=== PATIENT | female | born 1990 | race African-American/Black ===

== ENCOUNTER 2017-10-22 15:08 | Emergency (ER) | payer MEDICAID ==
[2017-10-22 16:02] LABS: ADD MAN DIFF? NO
[2017-10-22 16:05] LABS: MODE ROOM AIR; MetHgb Venous 0.3 %; Sample Type Blood venous; Site VENOUS LINE; Venous COHb 1.5 %; Venous Fraction OxyHgb 72.8 %; Venous Oxygen Sat 74.1 mmHG (55.0-75.0); Venous Total Hemglobin 14.9 g/dl
[2017-10-22] MEDS: SOD CHLORIDE 0.9% 520 ML IV (16:09)
[2017-10-22 16:11] LABS: WHITE BLOOD COUNT 6.5 10^3/ul (4.8-10.8)
[2017-10-22 16:11] LABS: BASOPHIL # 0.1 10^3/ul (0.0-0.1); BASOPHILS % 0.8 % (0.0-2.0); EOSINOPHILS # 0.1 10^3/ul (0.0-0.5); EOSINOPHILS % 0.9 % (0.0-7.0); HEMATOCRIT 41.7 % (37.0-47.0); HEMOGLOBIN 13.4 g/dl (12.0-16.0); LYMPHOCYTES # 1.9 10^3/ul (0.8-2.9); LYMPHOCYTES % 29.4 % (15.0-51.0); MEAN CORPUSCULAR HEMOGLOBIN 28.9 pg (29.0-33.0); MEAN CORPUSCULAR HGB CONC 32.1 g/dl (32.0-37.0); MEAN CORPUSCULAR VOLUME 90.1 fl (82.0-101.0); MEAN PLATELET VOLUME 9.4 fl (7.4-10.4); MONOCYTE # 0.4 10^3/ul (0.3-0.9); MONOCYTES % 5.4 % (0.0-11.0); NEUTROPHIL # 4.1 10^3/ul (1.6-7.5); NEUTROPHILS % 63.2 % (39.0-77.0); PLATELET COUNT 262 10^3/UL (140-415); RED BLOOD COUNT 4.63 10^6/ul (4.20-5.40); RED CELL DISTRIBUTION WIDTH 16.4 % (11.5-14.5)
[2017-10-22 16:18] LABS: ADD UMIC YES; UR ASCORBIC ACID NEGATIVE (NEGATIVE); UR BILIRUBIN (Dip) NEGATIVE (NEGATIVE); UR BLOOD (Dip) 2+ mg/dL (NEGATIVE); UR CLARITY SLIGHTLY CLOUDY (CLEAR); UR COLOR STRAW (YELLOW); UR GLUCOSE (Dip) 3+ mg/dL (NEGATIVE); UR KETONES (Dip) 2+ mg/dL (NEGATIVE); UR LEUKOCYTE ESTERASE (Dip) 2+ Leu/ul (NEGATIVE); UR NITRITE (Dip) NEGATIVE (NEGATIVE); UR RBC 5 /HPF (0-5); UR SPECIFIC GRAVITY (Dip) 1.026 (1.003-1.030); UR SQUAMOUS EPITHELIAL CELL FEW /HPF (FEW); UR TOTAL PROTEIN (Dip) NEGATIVE (NEGATIVE); UR UROBILINOGEN (Dip) NEGATIVE (NEGATIVE); UR WBC 10 /HPF (0-5)
[2017-10-22 16:45] LABS: ANION GAP 20 (8-16); BLOOD UREA NITROGEN 13 mg/dl (7-20); CALCIUM 9.4 mg/dl (8.4-10.2); CARBON DIOXIDE 19 mmol/L (21-31); CHLORIDE 98 mmol/L (97-110); CREATININE 0.47 mg/dl (0.44-1.00); MAGNESIUM 1.9 mg/dl (1.7-2.5); PHOSPHORUS 4.4 mg/dl (2.5-4.9); POTASSIUM 4.7 mmol/L (3.5-5.1); SODIUM 132 mmol/L (135-144)
[2017-10-22 16:47] LABS: GLUCOSE 570 mg/dl (70-220)
[2017-10-22] MEDS: SOD CHLORIDE 0.9% 1,000 ML IV (17:35)
[2017-10-22] MEDS: INSULIN LISPRO 100 UNIT/ML VIAL SC (17:46)
== END 2017-10-22 20:04 | disposition home or self-care (01) ==
LOC: E/R 20:04
DX: E10.65 Type 1 diabetes mellitus with hyperglycemia (principal); I10 Essential (primary) hypertension; N39.0 Urinary tract infection, site not specified; J45.909 Unspecified asthma, uncomplicated; Z79.4 Long term (current) use of insulin
CPT/HCPCS: 36415; 80048; 81001; 82803; 82962; 83735; 84100; 85025; 96372; 99284-25

== ENCOUNTER 2017-11-16 00:11 | Inpatient (IN) | payer MEDICAID ==
[2017-11-16 00:57] LABS: ADD UMIC YES; UR ASCORBIC ACID NEGATIVE (NEGATIVE); UR BILIRUBIN (Dip) NEGATIVE (NEGATIVE); UR BLOOD (Dip) NEGATIVE (NEGATIVE); UR CLARITY SLIGHTLY CLOUDY (CLEAR); UR COLOR STRAW (YELLOW); UR GLUCOSE (Dip) 3+ mg/dL (NEGATIVE); UR KETONES (Dip) 2+ mg/dL (NEGATIVE); UR LEUKOCYTE ESTERASE (Dip) TRACE Leu/ul (NEGATIVE); UR NITRITE (Dip) NEGATIVE (NEGATIVE); UR RBC 3 /HPF (0-5); UR SPECIFIC GRAVITY (Dip) 1.026 (1.003-1.030); UR SQUAMOUS EPITHELIAL CELL FEW /HPF (FEW); UR TOTAL PROTEIN (Dip) NEGATIVE (NEGATIVE); UR UROBILINOGEN (Dip) NEGATIVE (NEGATIVE); UR WBC 5 /HPF (0-5)
[2017-11-16 01:18] LABS: ADD MAN DIFF? NO
[2017-11-16 01:19] LABS: BASOPHIL # 0.1 10^3/ul (0.0-0.1); BASOPHILS % 0.9 % (0.0-2.0); EOSINOPHILS % 0.3 % (0.0-7.0); HEMATOCRIT 50.8 % (37.0-47.0); HEMOGLOBIN 16.3 g/dl (12.0-16.0); LYMPHOCYTES % 18.9 % (15.0-51.0); MEAN CORPUSCULAR HEMOGLOBIN 29.4 pg (29.0-33.0); MEAN CORPUSCULAR HGB CONC 32.1 g/dl (32.0-37.0); MEAN CORPUSCULAR VOLUME 91.7 fl (82.0-101.0); MONOCYTE # 0.6 10^3/ul (0.3-0.9); MONOCYTES % 5.2 % (0.0-11.0); PLATELET COUNT 600 10^3/UL (140-415); RED BLOOD COUNT 5.54 10^6/ul (4.20-5.40); RED CELL DISTRIBUTION WIDTH 15.6 % (11.5-14.5)
[2017-11-16 01:19] LABS: WHITE BLOOD COUNT 10.8 10^3/ul (4.8-10.8)
[2017-11-16] MEDS: SOD CHLORIDE 0.9% 1,000 ML IV ×3 (01:21→04:51)
[2017-11-16] MEDS: ONDANSETRON 4 MG INJ IV (01:22)
[2017-11-16 01:42] LABS: ANION GAP 44 (8-16); BLOOD UREA NITROGEN 16 mg/dl (7-20); CALCIUM 10.8 mg/dl (8.4-10.2); CARBON DIOXIDE 11 mmol/L (21-31); CHLORIDE 86 mmol/L (97-110); CREATININE 0.69 mg/dl (0.44-1.00); PHOSPHORUS 5.8 mg/dl (2.5-4.9); POTASSIUM 5.2 mmol/L (3.5-5.1); SODIUM 136 mmol/L (135-144)
[2017-11-16 01:59] LABS: GLUCOSE 602 mg/dl (70-220)
[2017-11-16 01:59] LABS: LACTIC ACID 3.1 mmol/L (0.5-2.0)
[2017-11-16] MEDS: LORAZEPAM 2 MG INJ IV (02:21)
[2017-11-16] MEDS: METOCLOPRAMIDE 10 MG INJ IV (02:21)
[2017-11-16] MEDS ORDERED: POTASSIUM CHLORIDE 40 MEQ in SOD CHLORIDE 0.9% 1,000 ML IV (02:21)
[2017-11-16] MEDS ORDERED: SODIUM CHLORIDE 23.4% 77 MEQ, POTASSIUM CHLORIDE 40 MEQ in DEXTROSE 10% 1,000 ML IV (02:21)
[2017-11-16] MEDS ORDERED: DEXTROSE 50% 50 ML SYRINGE IV ×2 (02:30)
[2017-11-16] MEDS: LACTATED RINGER'S 550 ML IV (02:30)
[2017-11-16 02:31] LABS: MODE ROOM AIR; MetHgb Venous 0.9 %; Sample Type Blood venous; Site VENOUS LINE; Venous COHb 0 %; Venous Fraction OxyHgb 25.4 %; Venous Oxygen Sat 25.6 mmHG (55.0-75.0); Venous Total Hemglobin 14.7 g/dl
[2017-11-16] MEDS ORDERED: ONDANSETRON 4 MG INJ IV (03:00)
[2017-11-16] MEDS: POTASSIUM CHLORIDE 30 MEQ in SOD CHLORIDE 0.9% 1,000 ML IV ×3 (03:38→16:06)
[2017-11-16] MEDS: INSULIN REGULAR, HUMAN 100 UNIT in SOD CHLORIDE 0.9% 100 ML IV (03:40)
[2017-11-16 04:12] LABS: HEMOGLOBIN A1C 11.1 % (0-5.9)
[2017-11-16 04:30] LABS: ANION GAP 34 (8-16); BLOOD UREA NITROGEN 16 mg/dl (7-20); CALCIUM 8.4 mg/dl (8.4-10.2); CHLORIDE 98 mmol/L (97-110); CREATININE 0.59 mg/dl (0.44-1.00); MAGNESIUM 1.6 mg/dl (1.7-2.5); PHOSPHORUS 4.3 mg/dl (2.5-4.9); POTASSIUM 5.5 mmol/L (3.5-5.1); SODIUM 133 mmol/L (135-144)
[2017-11-16 04:32] LABS: CARBON DIOXIDE 7 mmol/L (21-31); GLUCOSE 514 mg/dl (70-220)
[2017-11-16] MEDS: SODIUM CHLORIDE 23.4% 77 MEQ in DEXTROSE 10% 1,000 ML IV (04:52)
[2017-11-16 06:24] LABS: MODE ROOM AIR; MetHgb Venous 0.4 %; Sample Type Blood venous; Site VENOUS LINE; Venous COHb 0.4 %; Venous Fraction OxyHgb 64.9 %; Venous Oxygen Sat 65.4 mmHG (55.0-75.0); Venous Total Hemglobin 14.8 g/dl
[2017-11-16 07:19] LABS: ANION GAP 29 (8-16); BLOOD UREA NITROGEN 15 mg/dl (7-20); CALCIUM 8.5 mg/dl (8.4-10.2); CHLORIDE 102 mmol/L (97-110); CREATININE 0.57 mg/dl (0.44-1.00); GLUCOSE 278 mg/dl (70-220); POTASSIUM 4.4 mmol/L (3.5-5.1); SODIUM 136 mmol/L (135-144)
[2017-11-16 07:25] LABS: CARBON DIOXIDE 9 mmol/L (21-31)
[2017-11-16] MEDS: SODIUM CHLORIDE 23.4% 77 MEQ, POTASSIUM CHLORIDE 30 MEQ in DEXTROSE 10% 1,000 ML IV ×2 (07:50→12:11)
[2017-11-16] MEDS: FAMOTIDINE 20 MG INJ IV ×2 (08:36→20:28)
[2017-11-16 09:57] LABS: ADD MAN DIFF? NO
[2017-11-16 10:02] LABS: BASOPHILS % 0.2 % (0.0-2.0); EOSINOPHILS % 0.1 % (0.0-7.0); HEMATOCRIT 39.3 % (37.0-47.0); LYMPHOCYTES # 2.5 10^3/ul (0.8-2.9); LYMPHOCYTES % 17.1 % (15.0-51.0); MEAN CORPUSCULAR HGB CONC 33.1 g/dl (32.0-37.0); MEAN CORPUSCULAR VOLUME 90.6 fl (82.0-101.0); MEAN PLATELET VOLUME 8.3 fl (7.4-10.4); MONOCYTE # 1.3 10^3/ul (0.3-0.9); MONOCYTES % 9.2 % (0.0-11.0); NEUTROPHIL # 10.6 10^3/ul (1.6-7.5); NEUTROPHILS % 72.8 % (39.0-77.0); PLATELET COUNT 454 10^3/UL (140-415); RED BLOOD COUNT 4.34 10^6/ul (4.20-5.40); RED CELL DISTRIBUTION WIDTH 15.3 % (11.5-14.5)
[2017-11-16 10:02] LABS: WHITE BLOOD COUNT 14.6 10^3/ul (4.8-10.8)
[2017-11-16 10:38] LABS: CHOLESTEROL 206 mg/dl (100-200)
[2017-11-16 10:38] LABS: CHOL/HDL RATIO 3.8 RATIO; HDL CHOLESTEROL 54 mg/dl (33-83); LDL CHOLESTEROL,CALCULATED 131 mg/dl; TRIGLYCERIDES 106 mg/dl (0-149)
[2017-11-16 10:39] LABS: ANION GAP 20 (8-16); BLOOD UREA NITROGEN 12 mg/dl (7-20); CALCIUM 8.4 mg/dl (8.4-10.2); CARBON DIOXIDE 16 mmol/L (21-31); CHLORIDE 102 mmol/L (97-110); CREATININE 0.54 mg/dl (0.44-1.00); GLUCOSE 206 mg/dl (70-220); MAGNESIUM 1.8 mg/dl (1.7-2.5); PHOSPHORUS 2.3 mg/dl (2.5-4.9); POTASSIUM 4.8 mmol/L (3.5-5.1); SODIUM 133 mmol/L (135-144)
[2017-11-16 14:03] LABS: MODE ROOM AIR; MetHgb Venous 0.3 %; Sample Type Blood venous; Site OTHER; Venous COHb 0.4 %; Venous Fraction OxyHgb 54.3 %; Venous Oxygen Sat 54.7 mmHG (55.0-75.0); Venous Total Hemglobin 13.5 g/dl
[2017-11-16 15:46] LABS: ADD UMIC YES; UR ASCORBIC ACID NEGATIVE (NEGATIVE); UR BACTERIA FEW /HPF (NONE SEEN); UR BILIRUBIN (Dip) NEGATIVE (NEGATIVE); UR BLOOD (Dip) NEGATIVE (NEGATIVE); UR CLARITY SLIGHTLY CLOUDY (CLEAR); UR COLOR STRAW (YELLOW); UR GLUCOSE (Dip) 3+ mg/dL (NEGATIVE); UR KETONES (Dip) 2+ mg/dL (NEGATIVE); UR LEUKOCYTE ESTERASE (Dip) TRACE Leu/ul (NEGATIVE); UR MUCUS FEW /HPF (NONE SEEN); UR NITRITE (Dip) NEGATIVE (NEGATIVE); UR RBC 3 /HPF (0-5); UR SPECIFIC GRAVITY (Dip) 1.016 (1.003-1.030); UR SQUAMOUS EPITHELIAL CELL FEW /HPF (FEW); UR TOTAL PROTEIN (Dip) NEGATIVE (NEGATIVE); UR UROBILINOGEN (Dip) NEGATIVE (NEGATIVE); UR WBC 20 /HPF (0-5)
[2017-11-16 15:51] LABS: MODE ROOM AIR; MetHgb Venous 0.3 %; Sample Type Blood venous; Site VENOUS LINE; Venous COHb 0.4 %; Venous Fraction OxyHgb 65.2 %; Venous Oxygen Sat 65.7 mmHG (55.0-75.0); Venous Total Hemglobin 13.8 g/dl
[2017-11-16 16:16] LABS: ANION GAP 16 (8-16); BLOOD UREA NITROGEN 10 mg/dl (7-20); CALCIUM 8.1 mg/dl (8.4-10.2); CARBON DIOXIDE 17 mmol/L (21-31); CHLORIDE 106 mmol/L (97-110); CREATININE 0.44 mg/dl (0.44-1.00); GLUCOSE 186 mg/dl (70-220); POTASSIUM 4.5 mmol/L (3.5-5.1); SODIUM 134 mmol/L (135-144)
[2017-11-16 16:17] LABS: MAGNESIUM 1.8 mg/dl (1.7-2.5)
[2017-11-16 17:56] LABS: MODE ROOM AIR; MetHgb Venous 0.1 %; Sample Type Blood venous; Site OTHER; Venous COHb 0.6 %; Venous Fraction OxyHgb 61.4 %; Venous Oxygen Sat 61.8 mmHG (55.0-75.0); Venous Total Hemglobin 14.4 g/dl
[2017-11-16 18:31] LABS: ANION GAP 12 (8-16); BLOOD UREA NITROGEN 9 mg/dl (7-20); CALCIUM 8.2 mg/dl (8.4-10.2); CARBON DIOXIDE 21 mmol/L (21-31); CHLORIDE 106 mmol/L (97-110); CREATININE 0.34 mg/dl (0.44-1.00); GLUCOSE 188 mg/dl (70-220); MAGNESIUM 1.8 mg/dl (1.7-2.5); PHOSPHORUS 1.9 mg/dl (2.5-4.9); POTASSIUM 4.4 mmol/L (3.5-5.1); SODIUM 135 mmol/L (135-144)
[2017-11-16] MEDS: INSULIN ASPART [NOVOLOG] 3 ML PEN SC ×3 (19:07→20:28)
[2017-11-16] MEDS: INSULIN GLARGINE [LANTus] (100 UNITS/ML) SYG SC (19:08)
[2017-11-17] MEDS: ACCU-CHEK XX (02:00)
[2017-11-17 07:46] LABS: ANION GAP 15 (8-16); BLOOD UREA NITROGEN 8 mg/dl (7-20); CALCIUM 8.4 mg/dl (8.4-10.2); CARBON DIOXIDE 21 mmol/L (21-31); CHLORIDE 104 mmol/L (97-110); CREATININE 0.39 mg/dl (0.44-1.00); GLUCOSE 251 mg/dl (70-220); PHOSPHORUS 2.1 mg/dl (2.5-4.9); POTASSIUM 3.9 mmol/L (3.5-5.1); SODIUM 136 mmol/L (135-144)
[2017-11-17] MEDS: INSULIN ASPART [NOVOLOG] 3 ML PEN SC ×3 (08:13→11:06)
[2017-11-17] MEDS: ACETAMINOPHEN 650MG/20.3ML CUP PO (08:22)
[2017-11-17] MEDS: FAMOTIDINE 20 MG INJ IV (08:22)
== END 2017-11-17 11:10 | disposition home or self-care (01) | DRG 639 ==
LOC: E/R 00:11 → ICU 02:20
PROVIDERS: Internal Medicine
DX: E10.10 Type 1 diabetes mellitus with ketoacidosis without coma (principal); E87.5 Hyperkalemia; I10 Essential (primary) hypertension; F32.9 Major depressive disorder, single episode, unspecified; F12.90 Cannabis use, unspecified, uncomplicated; Z59.0 Homelessness; Z79.4 Long term (current) use of insulin; Z79.84 Long term (current) use of oral hypoglycemic drugs; Z91.14 Patient's other noncompliance with medication regimen
CPT/HCPCS: 36415; 80048; 80061; 81001; 81025; 82803; 82962; 83036; 83605; 83735; 84100; 85025; 87081; 96374; 96375; 99291-25

== ENCOUNTER 2017-12-06 09:53 | Inpatient (IN) | payer MEDICAID ==
[2017-12-06 11:09] LABS: ADD MAN DIFF? NO
[2017-12-06] MEDS: SOD CHLORIDE 0.9% 520 ML IV (11:11)
[2017-12-06 11:12] LABS: WHITE BLOOD COUNT 4.6 10^3/ul (4.8-10.8)
[2017-12-06 11:12] LABS: BASOPHIL # 0.1 10^3/ul (0.0-0.1); BASOPHILS % 1.3 % (0.0-2.0); EOSINOPHILS % 0.4 % (0.0-7.0); HEMATOCRIT 49.4 % (37.0-47.0); HEMOGLOBIN 15.8 g/dl (12.0-16.0); LYMPHOCYTES # 1.2 10^3/ul (0.8-2.9); LYMPHOCYTES % 25.4 % (15.0-51.0); MEAN CORPUSCULAR HEMOGLOBIN 30.7 pg (29.0-33.0); MEAN CORPUSCULAR VOLUME 96.1 fl (82.0-101.0); MEAN PLATELET VOLUME 9.4 fl (7.4-10.4); MONOCYTE # 0.3 10^3/ul (0.3-0.9); MONOCYTES % 6.3 % (0.0-11.0); NEUTROPHILS % 65.9 % (39.0-77.0); PLATELET COUNT 501 10^3/UL (140-415); RED BLOOD COUNT 5.14 10^6/ul (4.20-5.40); RED CELL DISTRIBUTION WIDTH 14.6 % (11.5-14.5)
[2017-12-06] MEDS: METOCLOPRAMIDE 10 MG INJ IV (11:22)
[2017-12-06 11:57] LABS: ANION GAP 37 (8-16); BLOOD UREA NITROGEN 17 mg/dl (7-20); CALCIUM 9.8 mg/dl (8.4-10.2); CARBON DIOXIDE 13 mmol/L (21-31); CHLORIDE 87 mmol/L (97-110); CREATININE 0.67 mg/dl (0.44-1.00); MAGNESIUM 2.1 mg/dl (1.7-2.5); PHOSPHORUS 6.4 mg/dl (2.5-4.9); POTASSIUM 5.2 mmol/L (3.5-5.1); SODIUM 132 mmol/L (135-144)
[2017-12-06 11:58] LABS: ADD UMIC YES; UR ASCORBIC ACID NEGATIVE (NEGATIVE); UR BILIRUBIN (Dip) NEGATIVE (NEGATIVE); UR BLOOD (Dip) 2+ mg/dL (NEGATIVE); UR CLARITY CLEAR (CLEAR); UR COLOR STRAW (YELLOW); UR GLUCOSE (Dip) 3+ mg/dL (NEGATIVE); UR KETONES (Dip) 2+ mg/dL (NEGATIVE); UR LEUKOCYTE ESTERASE (Dip) NEGATIVE Leu/ul (NEGATIVE); UR NITRITE (Dip) NEGATIVE (NEGATIVE); UR RBC 0 /HPF (0-5); UR SPECIFIC GRAVITY (Dip) 1.023 (1.003-1.030); UR TOTAL PROTEIN (Dip) NEGATIVE (NEGATIVE); UR UROBILINOGEN (Dip) NEGATIVE (NEGATIVE); UR WBC 0 /HPF (0-5)
[2017-12-06] MEDS ORDERED: SODIUM CHLORIDE 23.4% 77 MEQ, POTASSIUM CHLORIDE 40 MEQ in DEXTROSE 10% 1,000 ML IV (12:04)
[2017-12-06] MEDS ORDERED: POTASSIUM CHLORIDE 40 MEQ in SOD CHLORIDE 0.9% 1,000 ML IV (12:04)
[2017-12-06] MEDS ORDERED: SODIUM CHLORIDE 23.4% 77 MEQ in DEXTROSE 10% 1,000 ML IV (12:04)
[2017-12-06] MEDS ORDERED: SOD CHLORIDE 0.9% 1,000 ML IV (12:04)
[2017-12-06 12:12] LABS: GLUCOSE 689 mg/dl (70-220)
[2017-12-06] MEDS: LACTATED RINGER'S 520 ML IV (12:20)
[2017-12-06 12:27] LABS: AADO2 Venous 78.1 mmHg; MODE ROOM AIR; MetHgb Venous 0.8 %; Sample Type Blood venous; Site OTHER; Venous COHb 0.3 %; Venous Fraction OxyHgb 24.6 %; Venous Oxygen Sat 24.9 mmHG (55.0-75.0); Venous Total Hemglobin 15.7 g/dl
[2017-12-06] MEDS ORDERED: DEXTROSE 50% 50 ML SYRINGE IV ×2 (12:30)
[2017-12-06 12:45] LABS: HEMOGLOBIN A1C 11.7 % (0-5.9)
[2017-12-06] MEDS: INSULIN REGULAR, HUMAN 100 UNIT in SOD CHLORIDE 0.9% 100 ML IV (12:45)
[2017-12-06] MEDS: POTASSIUM CHLORIDE 30 MEQ in SOD CHLORIDE 0.9% 1,000 ML IV (12:48)
[2017-12-06 13:20] LABS: AADO2 Venous 94.6 mmHg; MODE ROOM AIR; MetHgb Venous 1.1 %; Sample Type Blood venous; Site OTHER; Venous COHb 0.1 %; Venous Oxygen Sat 65.8 mmHG (55.0-75.0); Venous Total Hemglobin 3.5 g/dl
[2017-12-06 14:30] LABS: ANION GAP 32 (8-16); BLOOD UREA NITROGEN 17 mg/dl (7-20); CALCIUM 8.8 mg/dl (8.4-10.2); CARBON DIOXIDE 10 mmol/L (21-31); CHLORIDE 96 mmol/L (97-110); CREATININE 0.61 mg/dl (0.44-1.00); PHOSPHORUS 5.4 mg/dl (2.5-4.9); POTASSIUM 5.1 mmol/L (3.5-5.1); SODIUM 133 mmol/L (135-144)
[2017-12-06 14:39] LABS: GLUCOSE 558 mg/dl (70-220)
[2017-12-06] MEDS: SODIUM CHLORIDE 23.4% 77 MEQ, POTASSIUM CHLORIDE 30 MEQ in DEXTROSE 10% 1,000 ML IV (14:57)
[2017-12-06 15:26] LABS: AADO2 Venous 80.1 mmHg; Allen Test ACCEPTAB; MODE ROOM AIR; MetHgb Venous 0.4 %; Sample Type Blood venous; Site OTHER; Venous COHb 0.2 %; Venous Fraction OxyHgb 59.9 %; Venous Oxygen Sat 60.3 mmHG (55.0-75.0); Venous Total Hemglobin 15.3 g/dl
[2017-12-06 16:04] LABS: ANION GAP 32 (8-16); BLOOD UREA NITROGEN 16 mg/dl (7-20); CALCIUM 8.9 mg/dl (8.4-10.2); CHLORIDE 99 mmol/L (97-110); CREATININE 0.57 mg/dl (0.44-1.00); MAGNESIUM 1.9 mg/dl (1.7-2.5); PHOSPHORUS 4.8 mg/dl (2.5-4.9); POTASSIUM 5.1 mmol/L (3.5-5.1); SODIUM 135 mmol/L (135-144)
[2017-12-06 16:07] LABS: CARBON DIOXIDE 9 mmol/L (21-31)
[2017-12-06 16:08] LABS: GLUCOSE 493 mg/dl (70-220)
[2017-12-06] MEDS ORDERED: DOCUSATE SODIUM 100 MG CAP PO (18:00)
[2017-12-06] MEDS ORDERED: HYDROCODONE/APAP (5/325) TAB PO (18:00)
[2017-12-06] MEDS ORDERED: morphine 2 MG INJ IV (18:00)
[2017-12-06] MEDS ORDERED: ACETAMINOPHEN 325 MG TAB PO (18:00)
[2017-12-06] MEDS ORDERED: BISACODYL (EC) 5 MG TAB PO (18:00)
[2017-12-06] MEDS ORDERED: NACL 0.9% 3 ML SYG IV (18:00)
[2017-12-06] MEDS ORDERED: ACETAMINOPHEN 650 MG SUPP PR (18:00)
[2017-12-06] MEDS: ONDANSETRON 4 MG INJ IV (18:15)
[2017-12-06 19:24] LABS: MODE ROOM AIR; MetHgb Venous 0.1 %; Sample Type Blood venous; Site VENOUS LINE; Venous COHb 0.5 %; Venous Fraction OxyHgb 43.2 %; Venous Oxygen Sat 43.5 mmHG (55.0-75.0); Venous Total Hemglobin 14.8 g/dl
[2017-12-06 19:34] LABS: ANION GAP 24 (8-16); BLOOD UREA NITROGEN 14 mg/dl (7-20); CALCIUM 8.4 mg/dl (8.4-10.2); CARBON DIOXIDE 14 mmol/L (21-31); CHLORIDE 103 mmol/L (97-110); CREATININE 0.55 mg/dl (0.44-1.00); GLUCOSE 282 mg/dl (70-220); MAGNESIUM 1.9 mg/dl (1.7-2.5); PHOSPHORUS 3.6 mg/dl (2.5-4.9); POTASSIUM 5.1 mmol/L (3.5-5.1); SODIUM 136 mmol/L (135-144)
[2017-12-06] MEDS: FAMOTIDINE 20 MG INJ IV (22:12)
[2017-12-06 22:38] LABS: ADD UMIC NO; UR ASCORBIC ACID NEGATIVE (NEGATIVE); UR BILIRUBIN (Dip) NEGATIVE (NEGATIVE); UR BLOOD (Dip) NEGATIVE (NEGATIVE); UR CLARITY CLEAR (CLEAR); UR COLOR STRAW (YELLOW); UR GLUCOSE (Dip) 3+ mg/dL (NEGATIVE); UR KETONES (Dip) 2+ mg/dL (NEGATIVE); UR LEUKOCYTE ESTERASE (Dip) NEGATIVE Leu/ul (NEGATIVE); UR NITRITE (Dip) NEGATIVE (NEGATIVE); UR SPECIFIC GRAVITY (Dip) 1.021 (1.003-1.030); UR TOTAL PROTEIN (Dip) NEGATIVE (NEGATIVE); UR UROBILINOGEN (Dip) NEGATIVE (NEGATIVE)
[2017-12-06] MEDS ORDERED: METOCLOPRAMIDE 10 MG INJ IV (23:30)
[2017-12-07 00:19] LABS: AADO2 Venous 71.7 mmHg; MODE ROOM AIR; MetHgb Venous 0.2 %; Site VENOUS LINE; Venous COHb 0.6 %; Venous Fraction OxyHgb 57.9 %; Venous Oxygen Sat 58.4 mmHG (55.0-75.0); Venous Total Hemglobin 14.2 g/dl
[2017-12-07 00:26] LABS: ANION GAP 16 (8-16); BLOOD UREA NITROGEN 11 mg/dl (7-20); CALCIUM 8.5 mg/dl (8.4-10.2); CARBON DIOXIDE 19 mmol/L (21-31); CHLORIDE 105 mmol/L (97-110); CREATININE 0.38 mg/dl (0.44-1.00); GLUCOSE 221 mg/dl (70-220); MAGNESIUM 1.7 mg/dl (1.7-2.5); PHOSPHORUS 2.6 mg/dl (2.5-4.9); SODIUM 135 mmol/L (135-144)
[2017-12-07 04:57] LABS: ADD MAN DIFF? NO
[2017-12-07 04:59] LABS: WHITE BLOOD COUNT 7.1 10^3/ul (4.8-10.8)
[2017-12-07 04:59] LABS: BASOPHILS % 0.1 % (0.0-2.0); EOSINOPHILS # 0.1 10^3/ul (0.0-0.5); EOSINOPHILS % 0.7 % (0.0-7.0); HEMATOCRIT 40.5 % (37.0-47.0); HEMOGLOBIN 12.8 g/dl (12.0-16.0); LYMPHOCYTES # 1.7 10^3/ul (0.8-2.9); LYMPHOCYTES % 24.2 % (15.0-51.0); MEAN CORPUSCULAR HEMOGLOBIN 30.4 pg (29.0-33.0); MEAN CORPUSCULAR HGB CONC 31.6 g/dl (32.0-37.0); MEAN CORPUSCULAR VOLUME 96.2 fl (82.0-101.0); MEAN PLATELET VOLUME 9.9 fl (7.4-10.4); MONOCYTE # 0.5 10^3/ul (0.3-0.9); MONOCYTES % 7.1 % (0.0-11.0); NEUTROPHIL # 4.8 10^3/ul (1.6-7.5); NEUTROPHILS % 67.5 % (39.0-77.0); RED BLOOD COUNT 4.21 10^6/ul (4.20-5.40); RED CELL DISTRIBUTION WIDTH 14.7 % (11.5-14.5)
[2017-12-07 05:01] LABS: HAAIG REFLEX REFLEX FILED
[2017-12-07 05:02] LABS: INR 1.26; PT RATIO 1.3
[2017-12-07 05:04] LABS: ALANINE AMINOTRANSFERASE 34 IU/L (13-69); ALBUMIN 2.9 g/dl (3.3-4.9); ALBUMIN/GLOBULIN RATIO 1.11; ALKALINE PHOSPHATASE 64 IU/L (42-121); ANION GAP 8 (8-16); ASPARTATE AMINO TRANSFERASE 25 IU/L (15-46); BILIRUBIN,INDIRECT 0.6 mg/dl (0-1.1); BILIRUBIN,TOTAL 0.6 mg/dl (0.2-1.3); BLOOD UREA NITROGEN 8 mg/dl (7-20); CALCIUM 8.2 mg/dl (8.4-10.2); CARBON DIOXIDE 22 mmol/L (21-31); CHLORIDE 107 mmol/L (97-110); CREATININE 0.27 mg/dl (0.44-1.00); GLUCOSE 195 mg/dl (70-220); POTASSIUM 4.2 mmol/L (3.5-5.1); SODIUM 133 mmol/L (135-144); TOTAL PROTEIN 5.5 g/dl (6.1-8.1)
[2017-12-07 05:12] LABS: MAGNESIUM 1.6 mg/dl (1.7-2.5)
[2017-12-07 05:12] LABS: PHOSPHORUS 2.3 mg/dl (2.5-4.9)
[2017-12-07 05:15] LABS: PLATELET COUNT 240 10^3/UL (140-415); POSITIVE DIFF @See below
[2017-12-07 05:35] LABS: THYROID STIMULATING HORMONE 0.534 MIU/L (0.465-4.680)
[2017-12-07 05:43] LABS: HEPATITIS B SURFACE ANTIGEN NEGATIVE (NEGATIVE)
[2017-12-07 05:55] LABS: HEMOGLOBIN A1C 11.3 % (0-5.9)
[2017-12-07 06:01] LABS: HEPATITIS B CORE ANTIBODY NEGATIVE (NEGATIVE); HEPATITIS C VIRAL ANTIBODY NEGATIVE (NEGATIVE)
[2017-12-07] MEDS: INSULIN GLARGINE [LANTus] (100 UNITS/ML) SYG SC ×2 (06:22→21:57)
[2017-12-07] MEDS ORDERED: INSULIN GLARGINE [LANTus] (100 UNITS/ML) SYG SC (08:00)
[2017-12-07 09:21] LABS: MAGNESIUM 1.6 mg/dl (1.7-2.5)
[2017-12-07 09:21] LABS: PHOSPHORUS 2.5 mg/dl (2.5-4.9)
[2017-12-07 09:26] LABS: AADO2 Venous 63.1 mmHg; MODE ROOM AIR; MetHgb Venous 0.2 %; Sample Type Blood venous; Site OTHER; Venous COHb 0.6 %; Venous Fraction OxyHgb 60.3 %; Venous Oxygen Sat 60.8 mmHG (55.0-75.0); Venous Total Hemglobin 13.6 g/dl
[2017-12-07] MEDS: ENOXAPARIN 40 MG/0.4 ML SYG SC (10:19)
[2017-12-07] MEDS: FAMOTIDINE 20 MG INJ IV (10:19)
[2017-12-07] MEDS ORDERED: GLUCOSE GEL 15 GRAM TUBE PO ×2 (10:30)
[2017-12-07] MEDS ORDERED: GLUCOSE GEL 15 GRAM TUBE BUCCAL (10:30)
[2017-12-07] MEDS ORDERED: DEXTROSE 50% 50 ML SYRINGE IV ×2 (10:30)
[2017-12-07] MEDS ORDERED: GLUCAGON 1 MG INJ IM (10:30)
[2017-12-07] MEDS: INSULIN ASPART [NOVOLOG] 3 ML PEN SC ×2 (14:04→17:56)
[2017-12-07] MEDS: AL HYDROX/MG HYDROX/SIMETH 30 ML CUP PO (17:46)
[2017-12-07] MEDS: MAGNESIUM SULFATE 3 GM in DEXTROSE 5% 100 ML IVPB (17:46)
[2017-12-07] MEDS: GABAPENTIN 300 MG CAP PO ×2 (17:46→21:49)
[2017-12-07] MEDS: SOD CHLORIDE 0.9% 1,000 ML IV (17:47)
[2017-12-07] MEDS ORDERED: INSULIN LISPRO 5 UNIT SC (17:55)
[2017-12-07] MEDS: FAMOTIDINE 20 MG TAB PO (21:50)
[2017-12-08 06:52] LABS: ADD MAN DIFF? NO
[2017-12-08 07:00] LABS: WHITE BLOOD COUNT 5.1 10^3/ul (4.8-10.8)
[2017-12-08 07:00] LABS: BASOPHILS % 0.6 % (0.0-2.0); EOSINOPHILS # 0.1 10^3/ul (0.0-0.5); EOSINOPHILS % 1.8 % (0.0-7.0); HEMATOCRIT 36.4 % (37.0-47.0); HEMOGLOBIN 12.1 g/dl (12.0-16.0); LYMPHOCYTES # 2.1 10^3/ul (0.8-2.9); LYMPHOCYTES % 40.3 % (15.0-51.0); MEAN CORPUSCULAR HEMOGLOBIN 30.7 pg (29.0-33.0); MEAN CORPUSCULAR HGB CONC 33.2 g/dl (32.0-37.0); MEAN CORPUSCULAR VOLUME 92.4 fl (82.0-101.0); MEAN PLATELET VOLUME 9.1 fl (7.4-10.4); MONOCYTE # 0.4 10^3/ul (0.3-0.9); MONOCYTES % 8.6 % (0.0-11.0); NEUTROPHIL # 2.5 10^3/ul (1.6-7.5); NEUTROPHILS % 48.3 % (39.0-77.0); PLATELET COUNT 397 10^3/UL (140-415); RED BLOOD COUNT 3.94 10^6/ul (4.20-5.40); RED CELL DISTRIBUTION WIDTH 14.5 % (11.5-14.5)
[2017-12-08 07:34] LABS: ANION GAP 12 (8-16); BLOOD UREA NITROGEN 11 mg/dl (7-20); CALCIUM 8.8 mg/dl (8.4-10.2); CARBON DIOXIDE 27 mmol/L (21-31); CHLORIDE 100 mmol/L (97-110); CREATININE 0.37 mg/dl (0.44-1.00); GLUCOSE 239 mg/dl (70-220); MAGNESIUM 1.8 mg/dl (1.7-2.5); PHOSPHORUS 2.9 mg/dl (2.5-4.9); POTASSIUM 4.2 mmol/L (3.5-5.1); SODIUM 135 mmol/L (135-144)
[2017-12-08] MEDS: INSULIN ASPART [NOVOLOG] 3 ML PEN SC ×2 (07:48→07:50)
[2017-12-08] MEDS: FAMOTIDINE 20 MG TAB PO (08:06)
[2017-12-08] MEDS: GABAPENTIN 300 MG CAP PO (08:06)
[2017-12-08] MEDS: ENOXAPARIN 40 MG/0.4 ML SYG SC (08:09)
== END 2017-12-08 10:56 | disposition home or self-care (01) | DRG 639 ==
LOC: E/R 09:53 → TEL 12-07 10:19
DX: E10.10 Type 1 diabetes mellitus with ketoacidosis without coma (principal); Z79.4 Long term (current) use of insulin; F12.90 Cannabis use, unspecified, uncomplicated; Z59.0 Homelessness; Z91.19 Patient's noncompliance with other medical treatment and regimen; J45.909 Unspecified asthma, uncomplicated; F32.9 Major depressive disorder, single episode, unspecified
CPT/HCPCS: 36415; 71045; 80048; 80053; 81001; 81003; 81025; 82803; 82962; 83036; 83735; 84100; 84443; 85025; 85610; 86704; 86709; 86803; 87086; 87340; 96374; 99291-25